=== PATIENT | female | born 1990 | race Caucasian/White ===

== ENCOUNTER 2017-04-13 13:51 | Emergency (ER) | payer MEDICAID ==
[2017-04-13] MEDS ORDERED: Sodium Chloride 0.9% 1,000 ML IV ONE (13:56)
--- NOTE | 2017-04-13 13:56 | EDM.PDOC ---
ED HPI GENERAL MEDICAL PROBLEM - General Chief Complaint: Abdominal Pain Stated Complaint: ABDOMINAL PAIN Time Seen by Provider: 04/13/17 13:55 Source of Information: Reports: Patient - History of Present Illness INITIAL COMMENTS - FREE TEXT/NARRATIVE: HISTORY AND PHYSICAL: History of present illness: []Patient with history of endometriosis presents with 8 out of 10 low abdominal pain after menses began, she is scheduled for laparoscopic exploration in the upcoming weeks No fever chills sweats no chest pain shortness breath headache dizziness palpitation no bowel or urine symptoms some nausea no vomiting History of appendectomy Review of systems: As per history of present illness and below otherwise all systems reviewed and negative. Past medical history: As per history of present illness and as reviewed below otherwise noncontributory. Surgical history: As per history of present illness and as reviewed below otherwise noncontributory. Social history: No reported history of drug or alcohol abuse. Family history: As per history of present illness and as reviewed below otherwise noncontributory. Physical exam: HEENT: Atraumatic, normocephalic, pupils reactive, negative for conjunctival pallor or scleral icterus, mucous membranes moist, throat clear, neck supple, nontender, trachea midline. Lungs: Clear to auscultation, breath sounds equal bilaterally, chest nontender. Heart: S1S2, regular, negative for clicks, rubs, or JVD. Abdomen: Soft, nondistended, nontender upper quadrants tender in the lower quadrants pelvic area. Negative for masses or hepatosplenomegaly. Negative for costovertebral tenderness. Pelvis: Stable nontender. Genitourinary: Deferred. Rectal: Deferred. Extremities: Atraumatic, negative for cords or calf pain. Neurovascular unremarkable. Neuro: Awake, alert, oriented. Cranial nerves II through XII unremarkable. Cerebellum unremarkable. Motor and sensory unremarkable throughout. Exam nonfocal. Diagnostics: [CBC CMP UA hCG amylase lipase CRP ] Therapeutics: Toradol 30 mg IV 1 L normal saline bolus Zofran 8 mg IV ] Toradol 10 mg by mouth 3 times a day when necessary #15 no refill Reglan 10 mg by mouth 3 times a day when necessary #30 no refill Follow-up with surgery as scheduled Impression: [Abdominal pain Colicky abdominal pain Endometriosis Current menstruation Definitive disposition and diagnosis as appropriate pending reevaluation and review of above. lower abdomen Pain Score (Numeric/FACES): 6 - Related Data Allergies Allergy/AdvReac Type Severity Reaction Status Date / Time No Known Allergies Allergy Verified 04/13/17 14:06 Home Meds: Home Meds traMADol [Ultram] 50 mg PO BID 04/13/17 [History] ED ROS GENERAL - Review of Systems Review Of Systems: ROS reveals no pertinent complaints other than HPI. ED EXAM, GENERAL - Physical Exam Exam: See Below Course - Vital Signs Last Recorded V/S: Last Vital Signs Temp 97.0 F 04/13/17 14:06 Pulse 85 04/13/17 14:06 Resp 20 04/13/17 14:06 BP 110/75 04/13/17 14:06 Pulse Ox 99 04/13/17 14:06 - Orders/Labs/Meds Orders: Active Orders 24 hr Category Date Time Status Abdomen 2V AP Flat Upright [CR] Stat Exams 04/13/17 14:44 Taken UA W/MICROSCOPIC [URIN] Stat Lab 04/13/17 13:54 Ordered Labs: Laboratory Tests 04/13/17 04/13/17 04/13/17 Range/Units 14:16 14:16 14:16 WBC 8.29 (4.0-11.0) K/uL RBC 4.64 (4.30-5.90) M/uL Hgb 14.3 (12.0-16.0) g/dL Hct 40.3 (36.0-46.0) % MCV 86.9 (80.0-98.0) fL MCH 30.8 (27.0-32.0) pg MCHC 35.5 (31.0-37.0) g/dL RDW Std Deviation 40.2 (28.0-62.0) fl RDW Coeff of Elaine 13 (11.0-15.0) % Plt Count 235 (150-400) K/uL MPV 9.40 (7.40-12.00) fL Neut % (Auto) 78.9 (48.0-80.0) % Lymph % (Auto) 17.2 (16.0-40.0) % [place] % (Auto) 3.3 (0.0-15.0) % Eos % (Auto) 0.4 (0.0-7.0) % Baso % (Auto) 0.2 (0.0-1.5) % Neut # (Auto) 6.5 H (1.4-5.7) K/uL Lymph # (Auto) 1.4 (0.6-2.4) K/uL [place] # (Auto) 0.3 (0.0-0.8) K/uL Eos # (Auto) 0.0 (0.0-0.7) K/uL Baso # (Auto) 0.0 (0.0-0.1) K/uL Nucleated RBC % 0.0 /100WBC Nucleated RBCs # 0 K/uL Sodium 143 (136-146) mmol/L Potassium 3.5 (3.5-5.1) mmol/L Chloride 108 (98-110) mmol/L Carbon Dioxide 22 (21-31) mmol/L BUN 11 (6.0-23.0) mg/dL Creatinine 0.6 (0.6-1.5) mg/dL Est Cr Clr Drug Dosing 129.43 mL/min Estimated GFR (MDRD) > 60.0 ml/min Glucose 98 (60-110) mg/dL Calcium 9.6 (8.8-10.8) mg/dL Total Bilirubin 1.1 (0.1-1.5) mg/dL AST 20 (5-40) IU/L ALT 20 (8-54) IU/L Alkaline Phosphatase 55 (40-150) C-Reactive Protein < 0.02 (0.0-0.5) mg/dL Total Protein 7.7 (6.0-8.0) g/dL Albumin 4.7 (3.5-5.0) g/dL Globulin 3.0 (2.0-3.5) g/dL Albumin/Globulin Ratio 1.6 (1.3-2.8) Amylase 35 (10-90) U/L Lipase 9 (7-80) U/L HCG, Qual (NEG) 04/13/ Range/Units 14:16 WBC (4.0-11.0) K/uL RBC (4.30-5.90) M/uL Hgb (12.0-16.0) g/dL Hct (36.0-46.0) % MCV (80.0-98.0) fL MCH (27.0-32.0) pg MCHC (31.0-37.0) g/dL RDW Std Deviation (28.0-62.0) fl RDW Coeff of Elaine (11.0-15.0) % Plt Count (150-400) K/uL MPV (7.40-12.00) fL Neut % (Auto) (48.0-80.0) % Lymph % (Auto) (16.0-40.0) % [place] % (Auto) (0.0-15.0) % Eos % (Auto) (0.0-7.0) % Baso % (Auto) (0.0-1.5) % Neut # (Auto) (1.4-5.7) K/uL Lymph # (Auto) (0.6-2.4) K/uL [place] # (Auto) (0.0-0.8) K/uL Eos # (Auto) (0.0-0.7) K/uL Baso # (Auto) (0.0-0.1) K/uL Nucleated RBC % /100WBC Nucleated RBCs # K/uL Sodium (136-146) mmol/L Potassium (3.5-5.1) mmol/L Chloride (98-110) mmol/L Carbon Dioxide (21-31) mmol/L BUN (6.0-23.0) mg/dL Creatinine (0.6-1.5) mg/dL Est Cr Clr Drug Dosing mL/min Estimated GFR (MDRD) ml/min Glucose (60-110) mg/dL Calcium (8.8-10.8) mg/dL Total Bilirubin (0.1-1.5) mg/dL AST (5-40) IU/L ALT (8-54) IU/L Alkaline Phosphatase (40-150) C-Reactive Protein (0.0-0.5) mg/dL Total Protein (6.0-8.0) g/dL Albumin (3.5-5.0) g/dL Globulin (2.0-3.5) g/dL Albumin/Globulin Ratio (1.3-2.8) Amylase (10-90) U/L Lipase (7-80) U/L HCG, Qual NEGATIVE (NEG) Meds: Medications Discontinued Medications Generic Name Dose Route Start Last Admin Trade Name Freq PRN Reason Stop Dose Admin Sodium Chloride 1,000 mls @ 999 mls/hr 04/13/17 13:56 04/13/17 14:24 Normal Saline IV 04/13/17 14:56 999 mls/hr STAT ONE Administration Ketorolac Tromethamine 30 mg 04/13/17 14:24 04/13/17 14:40 Toradol IVPUSH 04/13/17 14:25 30 mg ONETIME ONE Administration Metoclopramide HCl 10 mg 04/13/17 17:36 Reglan IV 04/13/17 17:37 ONETIME ONE Morphine Sulfate 2 mg 04/13/17 14:59 04/13/17 15:24 Morphine IV 04/13/17 15:00 2 mg ONETIME ONE Administration Morphine Sulfate 2 mg 04/13/17 16:39 04/13/17 17:03 Morphine IV 04/13/17 16:40 2 mg ONETIME ONE Administration Ondansetron HCl 8 mg 04/13/17 14:24 04/13/17 14:39 Zofran IVPUSH 04/13/17 14:25 8 mg ONETIME ONE Administration Departure - Departure Time of Disposition: 17:38 Disposition: Home, Self-Care 01 Condition: Good Clinical Impression: Abdominal pain, Endometriosis - Discharge Information Forms: ED Department Discharge Additional Instructions: Medication as prescribed Recommend clear liquid diet for 24 hours MiraLAX may benefit to clear stool and gas along with Gas-X and Reglan Gas-X is available [id number] Continue current medications Follow-up with her surgeon as scheduled Return if symptoms persist or worsen The following information is given to patients seen in the emergency department who are being discharged to home. This information is to outline your options for follow-up care. We provide all patients seen in our emergency department with a follow-up referral. The need for follow-up, as well as the timing and circumstances, are variable depending upon the specifics of your emergency department visit. If you don't have a primary care physician on staff, we will provide you with a referral. We always advise you to contact your personal physician following an emergency department visit to inform them of the circumstance of the visit and for follow-up with them and/or the need for any referrals to a consulting specialist. The emergency department will also refer you to a specialist when appropriate. This referral assures that you have the opportunity for follow-up care with a specialist. All of these measure are taken in an effort to provide you with optimal care, which includes your follow-up. Under all circumstances we always encourage you to contact your private physician who remains a resource for coordinating your care. When calling for follow-up care, please make the office aware that this follow-up is from your recent emergency room visit. If for any reason you are refused follow-up, please contact the [facility] emergency department at and asked to speak to the emergency department charge nurse. - My Orders Last 24 Hours: My Active Orders 04/13/17 13:54 UA W/MICROSCOPIC [URIN] Stat 04/13/17 14:44 Abdomen 2V AP Flat Upright [CR] Stat - Assessment/Plan Last 24 Hours: My Active Orders 04/13/17 13:54 UA W/MICROSCOPIC [URIN] Stat 04/13/17 14:44 Abdomen 2V AP Flat Upright [CR] Stat
[2017-04-13] MEDS ORDERED: Ondansetron 4 MG/2 ML SDV IVPUSH ONE (14:24)
[2017-04-13] MEDS ORDERED: Ketorolac 30 MG/ML SDV IVPUSH ONE (14:24)
[2017-04-13 14:47] LABS: CHLORIDE,CL 108 mmol/L (98-110); SODIUM,NA 143 mmol/L (136-146)
[2017-04-13] MEDS ORDERED: Morphine 10 MG/ML Syringe IV ONE ×2 (14:59→16:39)
[2017-04-13] MEDS ORDERED: Metoclopramide 10 MG/2 ML SDV IV ONE (17:36)
--- NOTE | 2017-04-14 16:12 | CR ---
EXAM DATE: 04/13/17 PATIENT'S AGE: 26 Patient: COLLIN BRUMFIELD Facility: [place], [place] Site . Site : 1990 Study: XRay Abdomen [id number] 5:27:21 PM Ordering Physician: Pauline Mon Final Report: INDICATION: Abdominal pain. TECHNIQUE: Upright and supine views of the abdomen IMPRESSION : The bowel gas pattern is nonobstructive. Upright exam shows no free air under the hemidiaphragms. Moderate volume of colonic stool. No pathologic abdominal calcifications. Mildly increased fluid in the stomach. IUD is present at the pelvis. Dictated by Jelani Daigle MD @ Apr 13 2017 5:49PM (Electronic Signature) Report Signed by Proxy. EDINSON
== END 2017-04-13 18:21 | disposition home or self-care (01) ==
LOC: MW.ED 13:51
DX: N80.9 Endometriosis, unspecified (principal)
CPT/HCPCS: 36415; 74020; 80053; 81001; 82150; 83690; 84703; 85025; 86140; 96361; 96374; 96375; 99284; J1885; J2270; J2405; J2765; J7040